=== PATIENT | female | born 1985 | race Caucasian/White ===

== ENCOUNTER 2024-04-29 13:21 | Emergency (ER) | payer OTHER ==
[~2024-04-29] VITALS: Ht 157.5 cm; Wt 89.8 kg
[2024-04-29] MEDS ORDERED: ACETAMINOPHEN 325 MG TABLET ONE (14:39)
[2024-04-29] MEDS: ACETAMINOPHEN 325 MG TABLET PO ONE (14:41)
[2024-04-29 15:16] VITALS: BP 100/60; TEMP 98.4; O2SAT 98
== END 2024-04-29 15:18 | disposition home or self-care (01) ==
LOC: ER 13:23
DX: S83.91XA Sprain of unspecified site of right knee, initial encounter (principal); Z90.89 Acquired absence of other organs; W01.0XXA Fall on same level from slipping, tripping and stumbling without subsequent striking against object, initial encounter; Y93.89 Activity, other specified; Y92.512 Supermarket, store or market as the place of occurrence of the external cause; Y99.8 Other external cause status
CPT/HCPCS: 73564-TC; 73590-TC